=== PATIENT | female | born 1970 | race Asian ===

== ENCOUNTER 2018-04-01 05:14 | Inpatient (IN) | payer OTHER ==
[2018-04-01] VITALS (13 sets, daily range): BP systolic 101–124; BP diastolic 64–76
[~2018-04-01] VITALS: Ht 148.6 cm; Wt 50.4 kg
[~2018-04-01 05:14] MED LIST: BEYAZ 28 TABLE1 EACH PO
[2018-04-01] MEDS ORDERED: Zemuron 50mg/5ml Inj IV ONE (06:15)
[2018-04-01] MEDS ORDERED: LR 1000ml 1,000 ML IVLG SCH (06:29)
[2018-04-01] MEDS ORDERED: LORazepam Inj 2mg/ml 1ml IV PRN (06:30)
[2018-04-01] MEDS ORDERED: oxyCODONE HCL/Acetaminophen 5/325mg ORAL PRN (06:30)
[2018-04-01] MEDS ORDERED: Labetalol 5mg/ml 20ml vial IV PRN (06:30)
[2018-04-01] MEDS ORDERED: Atropine Inj 1mg/10ml Syr IV PRN (06:30)
[2018-04-01] MEDS ORDERED: Metoclopramide 10mg/2ml Inj IVP PRN (06:30)
[2018-04-01] MEDS ORDERED: HYDROcodone/Acetamin 7.5/325 tab ORAL PRN (06:30)
[2018-04-01] MEDS ORDERED: fentaNYL 100 mcg/2 mL IV PRN (06:30)
[2018-04-01] MEDS ORDERED: Norco 5mg/325mg tab ORAL PRN (06:30)
[2018-04-01] MEDS ORDERED: Ketorolac 30mg Inj IV PRN ×2 (06:30)
[2018-04-01] MEDS ORDERED: Midazolam 2mg/2ml Inj IVP PRN (06:30)
[2018-04-01] MEDS ORDERED: DiphenhydrAMINE 50mg/ml Inj IVP PRN (06:30)
--- NOTE | 2018-04-01 06:30 | Anethesia Preoperative Eval ---
Anesthesia Pre-op PMH/ROS General Date of Evaluation: Apr 01, 2018 Time of Evaluation: 07:21 Anesthesiologist: Hope ASA Score: ASA 2 Mallampati Score Class I : Soft palate, uvula, fauces, pillars visible Class II: Soft palate, uvula, fauces visible Class III: Soft palate, base of uvula visible Class IV: Only hard plate visible Mallampati Classification: Class I Surgeon: Maycol Diagnosis: Back Pain Surgical Procedure: ALIF L4-5, L5-S1 Anesthesia History: none Family History: no anesthesia problems Allergies: Coded Allergies: No Known Allergies (Unverified , 03/31/18) Medications: see eMAR Past Medical History Gastrointestinal/Genitourinary: Reports: other - Ovarian Cysts PSxH Narrative: R Oophorectomy, L Cystectomy Anesthesia Pre-op Phys. Exam Physician Exam Last Vital Signs Date Time Temp Pulse Resp B/P (MAP) Pulse Ox O2 Delivery O2 Flow Rate FiO2 04/01/18 06:05 97.2 66 20 101/64 (76) 99 97.2 04/01/18 06:00 Room Air Constitutional: NAD Neurologic: CN 2-12 intact Cardiovascular: RRR Respiratory: CTA Gastrointestinal: S/NT/ND Airway Exam Mallampati Score: Class II MO: full ROM: full Teeth: intact Anesthesia Pre-op A/P Labs Urine Test Test 04/01/18 05:35 Urine HCG, Qualitative Negative (NEGATIVE) Risk Assessment & Plan Assessment: ASA 2 Plan: GA, BIS, GlideScope Go Status Change Before Surgery: No Pre-Antibiotics Dru Grams Ancef IV Given Within 1 Hr of Incision: Yes Time Given: 07:41 Pranav Arnett MD Apr 01, 2018 06:30
[2018-04-01] MEDS ORDERED: Lidocaine 1% 10mg/ml/Epi 0.005mg/ml 30ml vial INJ ONE (06:32)
[2018-04-01] MEDS ORDERED: Lidocaine 1% Plain 30 ml INJ ONE ×2 (06:32→07:38)
[2018-04-01] MEDS ORDERED: Ropivacaine 5mg/ml Vial 30ml INJ ONE (06:32)
[2018-04-01] MEDS ORDERED: Heparin 5000 units/ml inj ONE (06:32)
[2018-04-01] MEDS ORDERED: Thrombin 5000 units TOPIC ONE (06:32)
[2018-04-01] MEDS ORDERED: Bacitracin 50000 Units Vial ONE (06:33)
[2018-04-01] MEDS ORDERED: Lidocaine 1% MPF 10mg/ml 5ml ONE ×2 (06:43→09:34)
[2018-04-01] MEDS ORDERED: Sodium Chloride 10ml vial INJ ONE (06:43)
[2018-04-01] MEDS ORDERED: Dexamethasone 4mg/ml vial ONE (06:43)
[2018-04-01] MEDS ORDERED: fentaNYL 100 mcg/2 mL IV ONE ×2 (06:48→09:57)
[2018-04-01] MEDS ORDERED: Ketamine 500mg Inj ONE (06:48)
[2018-04-01] MEDS ORDERED: Dexamethasone 20mg/5ml IVP ONE (07:00)
[2018-04-01] MEDS ORDERED: Acetaminophen (Non formulary) 100 ML IV SCH (07:00)
[2018-04-01] MEDS ORDERED: ceFAZolin sod 1 GM in NS 55 ML IVPB ONE (07:00)
--- NOTE | 2018-04-01 07:15 | Immediate Post-Op Evaluation ---
Immediate Post-Op Evalulation Immediate Post-Op Evalulation Procedure: ALIF L4-5, L5-S1 Date of Evaluation: Apr 01, 2018 Time of Evaluation: 10:58 IV Fluids: 900 LR Blood Products: 0 Estimated Blood Loss: 30 Urinary Output: 200 Blood Pressure Systolic: 119 Blood Pressure Diastolic: 74 Pulse Rate: 79 Respiratory Rate: 16 O2 Sat by Pulse Oximetry: 100 Temperature (Fahrenheit): 98.4 Pain Score (1-10): 3 Nausea: No Vomiting: No Complications 0 Patient Status: awake, reacts, patent, extubated, none Hydration Status: adequate Dru Grams Ancef IV Given Within 1 Hr of Incision: Yes Time Given: 07:41 Pranav Arnett MD Apr 01, 2018 07:15
[2018-04-01] MEDS ORDERED: Propofol 1,000mg/ 100ml btl IV ONE (07:30)
[2018-04-01] MEDS ORDERED: LR 1000ml ONE (07:30)
[2018-04-01] MEDS ORDERED: Sterile Water Irrig 1000ml IRRIG ONE (07:30)
[2018-04-01] MEDS ORDERED: NS Irrig 1000ml ONE (07:30)
--- NOTE | 2018-04-01 07:30 | Pre-Procedure Note/Attestation ---
Pre-Procedure Note/Attestation Complete Prior to Procedure Planned Procedure: not applicable Procedure Narrative: ALIF L4-L5, L5-S1 possible posterior pedicle screw instrumentation L4-L5-S1 Indications for Procedure Pre-Operative Diagnosis: Traumatic Back Pain Lumbar Spine Instability Attestation I attest that I discussed the nature of the procedure; its benefits; risks and complications; and alternatives (and the risks and benefits of such alternatives ), prior to the procedure, with the patient (or the patient's legal mechanical service representative). I attest that, if there was a reasonable possibility of needing a blood transfusion, the patient (or the patient's legal mechanical service representative) was given the [place] Department [employer] standardized written summary, pursuant to the Jose Manuel Mccoy Blood Safety Act ([place] Health and Safety Code # 1645, as amended). I attest that I re-evaluated the patient just prior to the surgery and that there has been no change in the patient's H&P, except as documented below: ANITA YEAGER Apr 01, 2018 07:30
--- NOTE | 2018-04-01 10:13 | Brief Operative Note ---
Immediate Post Operative Note Operative Note Pre-op Diagnosis: Traumatic Back Pain Lumbar Spine Instability Procedure: ALIF L4-L5, L5-S1 BMP Fluro Internal fixation anterior plate L4-L5, L5-S1 Post-op Diagnosis: same as pre-op Findings: consistent w/pre-op dx studies Surgeon: Maycol Haynes MD Additional Surgeons: Nick NETTLES Anesthesiologist: Hope NETTLES Anesthesia: general Specimen: yes Complications: none Condition: stable Fluids: anesthesia Estimated Blood Loss: minimal Drains: none Implant(s) used?: Yes ANITA YEAGER Apr 01, 2018 10:13
[2018-04-01] MEDS ORDERED: Naloxone 0.4mg/ml Inj IVP PRN (10:15)
[2018-04-01] MEDS: Hydromorphone 0.5mg/0.5ml inj IVP PRN ×3 (11:24→13:58)
[2018-04-01] MEDS: D5 1/2NS 1,000 ML IV SCH ×2 (11:30→15:51)
--- NOTE | 2018-04-01 13:59 | Diagnostic Imaging Report ---
Indication: Back pain Comparison: None Findings: Fluoroscopic views of the lumbar spine were obtained. Intraoperative imaging showing localization followed by anterior fusion L4-5 and L5-S1 with anterior compression plate and screws and discectomy/prosthesis placement at both of these levels. 5 fluoroscopic images were obtained in total. Fluoroscopic time 24 seconds. IMPRESSION: Intraoperative imaging
[2018-04-01] MEDS ORDERED: Chloraseptic Spray 20mL Bottle ORAL PRN (15:15)
[2018-04-01] MEDS ORDERED: HYDROmorphone 1mg/ml Carpuject IVP PRN ×2 (15:15→15:30)
[2018-04-01] MEDS ORDERED: HYDROmorphone 1mg/ml Carpuject IVP SCH (15:30)
[2018-04-01] MEDS: ceFAZolin sod 1 GM in D5W 55 ML IV SCH ×2 (15:50→22:06)
[2018-04-01] MEDS: Docusate 100mg cap ORAL SCH (16:41)
--- NOTE | 2018-04-01 17:15 | Operative Note - Dictated ---
DATE OF OPERATION: 04/01/2018 PRIMARY SURGEON: George Severino, Ph.D., M.D. CO-SURGEON: Fan Romero M.D., Anterior Approach Surgeon, Vascular Surgery with Dr. Severino as assist with Dr. Romero exposure. Please see separate report for anterior exposure and closure. PREOPERATIVE DIAGNOSIS: Posttraumatic lumbar spine L4-L5, instability, severe back pain. Deformity L5-S1. POSTOPERATIVE DIAGNOSIS: Posttraumatic lumbar spine L4-L5, instability, severe back pain. Deformity L5-S1. PROCEDURES: 1. Anterior interbody reconstruction and fusion with synthetic titanium AERO-L device at L4-L5 and L5-S1. 2. Correction deformity L4-L5 and L5-S1. 3. Internal fixation with interbody device at L4-L5 and L5-S1. 4. Anterior internal plate fixation with bilateral cephalad/caudad screws, plate, separate L4-L5 and L5-S1 compressive mode. 5. Placement of bone-morphogenic protein L4-L5 and L5-S1 for fusion. 6. Fluoroscopic guidance intraoperative interpreted by surgeon. ESTIMATED BLOOD LOSS: Less than 50 mL. COMPLICATIONS: None. POSTOP CONDITION: Good/stable. DRAINS: None. SPECIMEN: Disc fragments to pathology. PROCEDURE IN DETAIL: The patient was brought to the operating room and in the supine position, general anesthesia with intubation was induced. Intravenous antibiotics and intravenous Decadron were administered 30 minutes prior to incision time. The anterior abdomen was sterilely prepped and draped free in usual sterile fashion. A longitudinal midline incision was sharply placed in the dermis and epidermis. Please see separate report of Dr. Romero. Identification of the L5-S1 interval was undertaken with fluoroscopic guidance under sterile conditions with a spinal needle placed midline. AP lateral radiographs obtained interpreted by surgeons demonstrating correct level and midline. Midline marked appropriately. Needle removed. Annulotomy. Discectomy to, but not through the posterior longitudinal ligament. Denuding of the inferior L5 and superior S1 vertebral body endplates to bleeding subchondral bone. Subchondral bone integrity maintained. Severe collapse. Anterior osteophytes resected under high-powered magnification. The interbody device with appropriate dimensions with correction of lordosis containing bone morphogenic protein selected and tamped into position after trial utilization with fluoroscopic guidance for determination of the correct prosthetic device, size, depth, height, and lordotic angulation. Device compressive internal fixation pins tamped into position. Excellent position and bone density. Fluoroscopic guidance. The graft was incorporated in fibrin glue. Anterior internal plate fixation in a compressive mode with 2 screws cephalad into the L5 and 2 screws caudad into the first sacral segment with fluoroscopic guidance. Locked into position. Attention turned to the L4-L5 interval. Identification of midline and correct level undertaken with fluoroscopic guidance under sterile conditions. Annulotomy performed. Diskectomy to, but not through the posterior longitudinal ligament. Denuding of the endplates to the bleeding subchondral bone without penetration of the subchondral bone. Appropriate lordotic implant trial utilized for determination of prosthetic device size. Sterile prosthetic titanium device packed with bone morphogenic protein, tamped into excellent position, internal flange fixation, followed with implant incorporation of fibrin glue. Anterior compressive plate fixation with 2 screws into the L4 and anterior screws into the L5 vertebral body. The screws were locked at both the L5-S1 and the L4-L5 positions. AP lateral radiographs obtained and recorded demonstrating excellent alignment. Wound irrigated with antibiotic-containing saline. Please see closure, Dr. Romero. George Severino M.D. DR: ZHANNA JOB#: [id number] CC:
--- NOTE | 2018-04-01 18:15 | Operative Note - Dictated ---
DATE OF OPERATION: 04/01/2018 VASCULAR SURGEON: Fan Romero M.D. SPINE SURGEON: George Severino M.D. PREOPERATIVE DIAGNOSIS: Degenerative disc disease. POSTOPERATIVE DIAGNOSIS: Degenerative disc disease. PROCEDURE PERFORMED: 1. Anterior retroperitoneal exposure, L4-L5 vertebral interspace. 2. Anterior retroperitoneal exposure, L5-S1 vertebral interspace. INDICATIONS: The patient is a very pleasant woman who was in my office prior to surgery. She has a prior history of a Phytopathologist surgery with a low-transverse incision, but no history of deep venous thrombosis, bleeding complications, or anterior spine surgery. She is scheduled to undergo lumbar spine surgery at L4-5 and L5-S1. I discussed with her the need for a vertical midline incision to gain safe and adequate access for L4-L5. She understands a separate incision be required. We also discussed risks of vascular injury, possible need for blood transfusion, deep venous thrombosis. DESCRIPTION OF FINDINGS: A low vertical midline incision was used. Left retroperitoneal approach was used. There was no peritoneal or ureteral violation. There was no vascular injury. Blood loss was less than 50 mL. Fluoroscopy was used to confirm both levels prior to instrumentation. L5-S1 was obtained below the iliac bifurcation and L4-L5 was obtained above the iliac bifurcation with retraction of left iliac vessels towards the patient's right. DESCRIPTION OF PROCEDURE: The patient was taken to the operating room. General anesthesia was used. IV antibiotics were given. Daniels catheter was placed. The patient's abdomen was prepped and draped. Appropriate time-out procedures were taken. A low vertical midline incision was made. Anterior fascia was incised longitudinally in the midline. A plane was identified posterior to the left rectus abdominis developed posterolaterally towards the patient's left. Retroperitoneal space was entered below the arcuate line. The peritoneum and ureter were mobilized towards the patient's right exposing the left common iliac artery and vein. Initially, dissection was carried on the undersurface of the left common iliac vein. The middle sacral artery and vein were ligated using bipolar electrocautery and vascular clips. This allowed us to retract the left common iliac artery and vein superiorly and laterally and expose the anterior surface of the L5-S1. The Omni retractor was set in place. Fluoroscopy was used to confirm the appropriate level. Then, instrumentation was performed at L5-S1 and dictated separately. The retractor was then repositioned above the iliac bifurcation. Dissection was carried lateral to the left common iliac artery and vein. The iliolumbar vein was identified. It was triply ligated proximally and distally with vascular clips and divided. The L4 segmental artery and vein were also identified and ligated with vascular clips and divided, and this allowed us to retract the left common iliac artery and vein towards the patient's right and expose the anterior surface of L4-L5. Once again, the Omni retractor was set in place. Fluoroscopy was used to confirm the appropriate level and instrumentation was performed at L4-L5 and dictated separately. The retractors were then gently removed. The peritoneum and ureter intact. Iliac vessels were intact. Anterior fascia was then closed using #1 PDS in a running fashion. The skin and subcutaneous tissue were closed with 3-0 Vicryl and 4-0 Monocryl in running subcuticular closure technique. ESTIMATED BLOOD LOSS: Less than 50 mL. COMPLICATIONS: None. Fan Romero M.D. DR: GAB JOB#: [id number] CC: George Severino M.D.
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
[2018-04-01] MEDS: HYDROmorphone 1mg/ml Carpuject SUBQ PRN (23:22)
[2018-04-02] VITALS (7 sets, daily range): BP systolic 91–101; BP diastolic 52–66
[2018-04-02] MEDS: D5 1/2NS 1,000 ML IV SCH ×3 (02:34→19:30)
[2018-04-02] MEDS: HYDROmorphone 1mg/ml Carpuject SUBQ PRN ×2 (04:36→08:10)
[2018-04-02] MEDS: ceFAZolin sod 1 GM in D5W 55 ML IV SCH (06:05)
--- NOTE | 2018-04-02 06:51 | 48 Hour Post Anesthesia Eval ---
Post Anesthesia Evaluation Procedure: ALIF L4-5, L5-S1 Date of Evaluation: Apr 02, 2018 Time of Evaluation: 06:50 Blood Pressure Systolic: 95 0: 61 Pulse Rate: 71 Respiratory Rate: 16 Temperature (Fahrenheit): 96.8 O2 Sat by Pulse Oximetry: 97 Airway: patent Nausea: No Vomiting: No Pain Intensity: 2 Hydration Status: adequate Cardiopulmonary Status: Stable Mental Status/LOC: patient returned to baseline Follow-up Care/Observations: 0 Post-Anesthesia Complications: 0 Follow-up care needed: N/A Pranav Arnett MD Apr 02, 2018 06:51
[2018-04-02] MEDS: Docusate 100mg cap ORAL SCH ×3 (08:16→18:00)
--- NOTE | 2018-04-02 09:48 | Orthopedic Spine Progress Note ---
Ortho Spine - Progress Note Subjective Additional Comments: initiating walking. Resolution preop back pain. No lower extremity radiculopathy or subjective weakness Objective Vital Signs: Last 24 Hour Vital Signs Date Time Temp Pulse Resp B/P (MAP) Pulse Ox O2 Delivery O2 Flow Rate FiO2 04/02/18 08:26 97.7 73 18 101/65 (77) 99 97.7 04/02/18 06:52 206.2 16 97 04/02/18 06:51 71 04/02/18 06:14 95/66 (76) 04/02/18 05:00 96.8 71 19 91/55 (67) 97 96.8 04/02/18 00:00 97.5 76 18 92/52 (65) 97 97.5 04/01/18 21:00 97.7 65 19 108/71 (83) 100 97.7 04/01/18 21:00 Nasal Cannula 2.0 04/01/18 16:00 97.8 86 124/73 (90) 98 97.8 04/01/18 12:15 98.4 76 116/74 (88) 98 98.4 04/01/18 12:00 98.5 71 14 112/74 100 Nasal Cannula 3 98.5 04/01/18 11:54 98.5 04/01/18 11:48 98.3 04/01/18 11:48 69 17 114/76 100 Nasal Cannula 3 04/01/18 11:35 72 22 114/75 100 Nasal Cannula 3 04/01/18 11:24 98.3 04/01/18 11:24 71 20 117/75 100 Nasal Cannula 3 04/01/18 11:15 74 13 120/74 100 Simple Mask 6 04/01/18 11:05 75 15 118/71 100 Simple Mask 6 04/01/18 10:57 77 17 115/69 100 Simple Mask 6 04/01/18 10:52 78 22 116/68 100 Simple Mask 6 04/01/18 10:50 209.1 79 16 100 04/01/18 10:47 98.4 87 16 119/74 100 Simple Mask 6 98.4 I&O: Intake and Output 04/01/18 04/02/18 19:00 07:00 Intake Total 1555 ml 1085.84 ml Output Total 830 ml 600 ml Balance 725 ml 485.84 ml Intake IV Total 1555 ml 1085.84 ml Output Urine Total 800 ml 600 ml Estimated Blood Loss 30 ml Assessment Procedure Performed: ALIF L4-L5, L5-S1 BMP Fluro Internal fixation anterior plate L4-L5, L5-S1 Plan Additional Comments: increase gate ice chips only until bowel sounds / flatua / bm ANITA YEAGER Apr 02, 2018 09:48
[2018-04-02] MEDS ORDERED: Magnesium Citrate Liq Btl ORAL SCH (10:30)
[2018-04-02] MEDS: HYDROcodone/Acetamin 10/325 tab ORAL PRN ×2 (14:09→19:11)
--- NOTE | 2018-04-02 17:02 | Progress Note ---
DATE: 04/02/2018 ACUTE PAIN MANAGEMENT PHYSICIAN PROGRESS NOTE MEDICATIONS: Medication administration record reviewed. Medications include Phenergan, Chloraseptic, Protonix, Zofran, Narcan, Dilaudid, [place], Colace, Benadryl, Catapres, Soma, and Mylanta. LABORATORY STUDIES: No interval laboratory studies. OBJECTIVE: VITAL SIGNS: Pain level 6/10 on the visual analog pain scale. Oxygen saturation 97%, blood pressure 95/66, respirations 19, pulse 71, and afebrile. I saw the patient at the bedside with the nurse, RN, Jessica. I spent over 60 minutes in consultation today. The patient has been progressing well after her anterior lumbar spine surgery yesterday. She remains NPO as she is not passing any flatus. We do have her on IV fluids at 125 mL an hour to help with intravascular rehydration. The patient denies any headaches or nausea symptoms. The patient has been responding quite well to the subcutaneous Dilaudid injections. There has been no over-sedation using the current dosing as listed. The patient did receive Soma last night, which did help with sleep. The patient is in good spirits. She appears neurologically intact. The patient is excited to begin ambulating with physical therapy later this morning. The patient has been compliant using her incentive spirometer. Overall, the patient is on schedule with her recovery. We will see how she progresses with physical therapy ambulation later today, and we still await orthodox of bowel function after ALIF procedure and the patient to then advance her diet. Siva Cintron M.D. DR: JOANN JOB#: [id number] CC:
[2018-04-03] VITALS: BP 97/61
[2018-04-03] MEDS: D5 1/2NS 1,000 ML IV SCH ×3 (01:00→21:16)
[2018-04-03 04:00] VITALS: BP 59/61
[2018-04-03] MEDS: HYDROcodone/Acetamin 10/325 tab ORAL PRN ×4 (05:46→20:32)
[2018-04-03] MEDS: Docusate 100mg cap ORAL SCH ×2 (09:13→17:36)
[2018-04-03] MEDS ORDERED: Magnesium Citrate Liq Btl ORAL SCH (10:30)
[2018-04-03 11:13] VITALS: BP 99/72
[2018-04-03 12:00] VITALS: BP 100/72
[2018-04-03] MEDS ORDERED: D5 1/2NS 1000ml IV ONE (13:57)
[2018-04-03 18:23] VITALS: BP 104/77
--- NOTE | 2018-04-03 19:03 | Cardiology Progress Note ---
Assessment/Plan Assessment/Plan [id number] home in am with bm ambulate Objective Last 24 Hour Vital Signs Date Time Temp Pulse Resp B/P (MAP) Pulse Ox O2 Delivery O2 Flow Rate FiO2 04/03/18 18:23 92 18 97 04/03/18 12:00 98.3 93 20 100/72 (81) 96 98.3 04/03/18 11:17 Room Air 04/03/18 11:13 98.8 98 20 99/72 (81) 97 98.8 04/03/18 04:00 100.3 100 18 59/61 (60) 97 100.3 04/03/18 00:00 100.0 90 18 97/61 (73) 96 100.0 04/02/18 21:00 Room Air 04/02/18 20:00 97.3 82 18 97/60 (72) 96 97.3 Intake and Output 04/02/18 04/03/18 19:00 07:00 Intake Total 1250 ml 1000 ml Output Total 800 ml Balance 450 ml 1000 ml IV Total 1250 ml 1000 ml Output Urine Total 800 ml # Voids 1 2 Microbiology Date/Time Source Procedure Growth Status 04/01/18 05:50 Nasal Nares MRSA Culture - Final NO METHICILLIN RESISTANT STAPH AUREUS... Complete Mio Levy MD Apr 03, 2018 19:03
[2018-04-03] MEDS ORDERED: NS 250 ML IVPB SCH (19:15)
[2018-04-03 20:00] VITALS: BP 100/69
--- NOTE | 2018-04-03 20:01 | Progress Note ---
DATE: 04/03/2018 ACUTE PAIN MANAGEMENT PHYSICIAN PROGRESS NOTE VITAL SIGNS: T-max 100.3, pulse 100, respirations 18, blood pressure 97/61, oxygen saturation 97% on room air. LABORATORY STUDIES: No interval laboratory studies. MEDICATIONS: Medication administration record reviewed. Medications include IV fluids, Colace, Protonix. P.r.n. medications include Narcan, Benadryl, Catapres, Soma, [place], Zofran, Phenergan, Chloraseptic spray, Mylanta, Dilaudid. I spent over 60 minutes in consultation today. I saw the patient at the bedside with the nurse, JAIRO Davis. I discussed the case with the charge nurse, JAIRO Cho. I discussed the case with the surgeon, Dr. Severino, and the physical therapist. The patient has been doing very well, recovering from her extensive surgery on her lumbar spine. She is able to move in and out of bed with relative ease as long as she stays on a good schedule using her p.r.n. doses of pain medications, which have been primarily IV Dilaudid and oral [place]. The patient also has been using Soma at night regularly, which has been aiding her sleep patterns quite nicely. Itching symptoms have resolved. She has no nausea symptoms. She does not have much of an appetite, but denies any nausea symptoms. We will continue her on IV fluids at a rate of 125 mL an hour currently. She still has not yet passed positive flatus. It is now nearly 48 hours after her surgery. We would expect improvement in bowel function over the next 12 hours. When she does pass flatus, the surgeon, Dr. Severino, will determine how to best advance her diet. The patient shows no anxiety symptoms. She has good social support with her and children who visit frequently. The patient already has a good supply of [place] and Soma for home usage. The patient has not been extremely compliant using her incentive spirometer. Her recent low-grade fevers are then not surprising. I did encourage much more aggressive incentive spirometer usage to avoid postoperative atelectasis and avoid fevers. Siva Cintron M.D. DR: Kvng JOB#: [id number] CC:
[2018-04-04] VITALS: BP 105/59
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
[2018-04-04] MEDS: HYDROcodone/Acetamin 10/325 tab ORAL PRN ×2 (03:53→09:19)
[2018-04-04] MEDS: D5 1/2NS 1,000 ML IV SCH (03:53)
[2018-04-04 04:00] VITALS: BP 107/69
[2018-04-04 08:00] VITALS: BP 110/71
[2018-04-04] MEDS: Docusate 100mg cap ORAL SCH (09:20)
--- NOTE | 2018-04-04 10:39 | Discharge Summary ---
Discharge Summary Hospital Course Date of Admission Apr 01, 2018 at 05:14 Date of Discharge Admitting Diagnosis ROULA Hutchinson is a 47 year old female who was admitted on Apr 01, 2018 at 05:14 for Lumbar Discogenic Back Pain Hospital Course [id number] Discharge Discharge Disposition Patient was discharged to Mio Levy MD Apr 04, 2018 10:39
--- NOTE | 2018-04-04 10:40 | Discharge Instructions ---
Discharge Instructions Discharge Instructions Special Instructions fu with dr venegas as instructed For Congestive Heart Failure Reminder Report to your physician any weight gain of 5 pounds or more in one week. Mio Levy MD Apr 04, 2018 10:40
[2018-04-04] MEDS ORDERED: NORCO 10-325 T1 EACH ORAL (11:51)
[2018-04-04 12:05] VITALS: BP 105/68
--- NOTE | 2018-04-04 16:31 | Progress Note ---
DATE: 04/04/2018 ACUTE PAIN MANAGEMENT PHYSICIAN PROGRESS NOTE. MEDICATIONS: Medication administration record reviewed. Medications include IV fluids, Colace, Protonix, p.r.n. medications include Narcan, Benadryl, Catapres, Soma, [place], Zofran, Phenergan, Dilaudid, Chloraseptic spray, Mylanta, and Dilaudid. LABORATORY STUDIES: No interval laboratory studies. OBJECTIVE: VITAL SIGNS: Within normal limits. Afebrile, pulse 84, respirations 18, blood pressure 105/59, oxygen saturation 96% on room air. I spent over 60 minutes in consultation today. I saw the patient at the bedside with her daughter. I discussed the case with the hospital pharmacist along with the surgeon, Dr. George Severino, and the nurse RN, Steven. After dosing the patient with magnesium citrate 100 mL per the surgeon, the patient did have a bowel movement after her diet was advanced. She did began passing flatus earlier yesterday morning. She tolerated clear liquids and continued to tolerate increasing diet. She has no nausea symptoms. The patient continues to ambulate well. She is breathing comfortably on room air and is much more compliant using the incentive spirometer. She has been using the oral [place] quite regularly. I did leave a prescription for next for tablets of [place] for outpatient usage. The patient already has a small supply of [place] as well as prescription filled for Soma for outpatient usage. The patient has excellent social support with her family and children and the plan is for her to transport to home later this morning through a transportation company arranged preoperatively. The patient will continue using her incentive spirometer at home. The patient will follow up with Dr. Severino in the outpatient followup clinic. With normal vital signs and after having passed a bowel movement to demonstrate zoroastrian of proper bowel function, I see no no contraindications for discharge to home at this time. Siva Cintron M.D. DR: Ana Maria JOB#: [id number] CC:
--- NOTE | 2018-04-05 04:31 | Discharge Summary ---
DATE OF ADMISSION: 04/01/2018 DATE OF DISCHARGE: 04/04/2018 DISCHARGE DIAGNOSES: Posttraumatic lumbar spine L4-L5 instability, severe back pain, and deformity of L5-S1. PROCEDURES PERFORMED: Anterior interbody reconstruction and fusion with synthetic titanium AERO-L device at L4-L5 and L5-S1 and correction of deformity at those levels. HOSPITAL COURSE: This patient was admitted to the hospital after surgery by Dr. Severino and Dr. Romero. She did relatively well. She has had bowel movement the day prior to discharge and has been walking around the halls. No significant issues and on the day of discharge, she is afebrile, her blood pressure is 107/69 with heart rate of 85, temperature 98 degrees, and saturation of 97% on room air. Lungs are clear to auscultation and percussion. Cardiac examination, S1 is normal, S2 is normal, regular rate and rhythm. Abdomen is soft. Dressing in anterior lower abdomen is clean, dry, and intact. Extremities, there is no clubbing, cyanosis, or edema. She is able to move all of her toes. She does have complaint of some tingling sensation in her first toe only, not in the remainder of the foot or any other toes. The patient's case was discussed with Dr. Severino and decision was made for the patient to be discharged home with followup as instructed by Dr. Severino as an outpatient. Mio Levy M.D. DR: GWEN JOB#: [id number] CC:
== END 2018-04-04 13:50 | disposition home or self-care (01) | DRG 460 ==
LOC: SDSOVERFLO 05:14 → 3E 12:15
DX: M53.2X6 Spinal instabilities, lumbar region (principal); K56.7 Ileus, unspecified; M51.36 Other intervertebral disc degeneration, lumbar region; M51.37 Other intervertebral disc degeneration, lumbosacral region; M53.2X7 Spinal instabilities, lumbosacral region; S39.82XS Other specified injuries of lower back, sequela; X58.XXXS Exposure to other specified factors, sequela; G89.18 Other acute postprocedural pain
CPT/HCPCS: 36415; 72020; 76001; 81025; 86850; 86900; 86901; 87081; 94003; 94150